=== PATIENT | female | born 1960 | race Caucasian/White ===

== ENCOUNTER 2017-04-11 16:03 | Outpatient (CLI) | payer OTHER | END 2017-04-11 20:25 | disposition home or self-care (01) | LOC: SMA 16:03 | PROVIDERS: ATTEND Family Medicine | DX: Z12.31 Encounter for screening mammogram for malignant neoplasm of breast (principal) | CPT/HCPCS: G0202 ==

== ENCOUNTER 2019-03-25 15:25 | Outpatient (CLI) | payer OTHER | END 2019-03-26 13:43 | disposition home or self-care (01) | LOC: SMA 15:25 | PROVIDERS: ATTEND Family Medicine | DX: Z12.31 Encounter for screening mammogram for malignant neoplasm of breast (principal) | CPT/HCPCS: 77067 ==

== ENCOUNTER 2020-06-29 12:50 | Outpatient (CLI) | payer OTHER | END 2020-06-29 20:24 | disposition home or self-care (01) | LOC: SMA 12:50 | PROVIDERS: ATTEND Family Medicine | DX: Z12.31 Encounter for screening mammogram for malignant neoplasm of breast (principal) | CPT/HCPCS: 77067 ==